=== PATIENT | female | born 1935 | race Caucasian/White ===

== ENCOUNTER 2017-09-05 09:16 | Emergency (ER) | payer MEDICARE, OTHER ==
[2017-09-05 09:33] VITALS: RESP 18
--- NOTE | 2017-09-05 09:44 | ED ---
General Adult HPI - General Chief complaint: Fall Stated complaint: fall Time Seen by Provider: 09/05/17 09:31 Source: patient, EMS, RN notes reviewed Mode of arrival: EMS Limitations: no limitations - History of Present Illness Initial comments: Patient is an 82-year-old female presenting to the emergency room today by EMS, the chief complaint of a fall out of bed that occurred this morning. She states that she is unsure what happened exactly but she fell out of bed landing on her back. Patient states that she is unsure if she hit her head but did not lose consciousness. She states she's not on any blood thinners. She does admit some neck pain. Also missed some mild pain to the lower back. Patient denies any other complaints or symptoms. Patient denies any recent fever, chills , shortness of breath, chest pain, abdominal pain, nausea or vomiting, numbness or tingling, dysuria or hematuria, constipation or diarrhea, headaches or visual changes, or any other complaints. - Related Data Home Medications Medication Instructions Recorded Confirmed Aspirin 81 mg PO DAILY 10/02/13 09/18/15 Atorvastatin Calcium [Lipitor] 20 mg PO HS 10/02/13 09/18/15 Potassium Chloride [Klor-Con 10] 10 meq PO DAILY 10/02/13 09/18/15 Venlafaxine HCl ER [Effexor XR] 150 mg PO DAILY 10/02/13 09/18/15 metFORMIN HCL [Glucophage] 500 mg PO BID 10/02/13 09/18/15 Celecoxib [CeleBREX] 200 mg PO DAILY 01/25/14 09/18/15 Furosemide [Lasix] 20 mg PO HS 07/13/15 09/18/15 Furosemide [Lasix] 40 mg PO [facility] 07/13/15 09/18/15 Albuterol Sulfate [Proair 1 puff PO RT-Q6H PRN 09/18/15 09/18/15 Respiclick] Carvedilol [Coreg] 6.25 mg PO BID 09/18/15 09/18/15 Lovwhsmsourhry-DP-Incelzsrmt 1 tab PO DAILY 09/18/15 09/18/15 [Folbic] Latanoprost [Xalatan 0.005%] 1 drop BOTH EYES HS 09/18/15 09/18/15 Loperamide [Imodium] 2 mg PO QID PRN 09/18/15 09/18/15 SILVER sulfADIAZINE CREAM 1 applic TOPICAL DAILY 09/18/15 09/18/15 [Silvadene Cream] Previous Rx's Medication Instructions Recorded Cefuroxime [Ceftin] 250 mg PO BID #14 tablet 09/21/15 Famotidine [Pepcid] 20 mg PO DAILY tab 09/21/15 Allergies Allergy/AdvReac Type Severity Reaction Status Date / Time Penicillins AdvReac Diarrhea Verified 09/05/17 09:33 Review of Systems ROS Statement: Those systems with pertinent positive or pertinent negative responses have been documented in the HPI. ROS Other: All systems not noted in ROS Statement are negative. Past Medical History Past Medical History: Heart Failure, Diabetes Mellitus, Hyperlipidemia, Osteoarthritis (OA), Seizure Disorder Additional Past Medical History / Comment(s): EDEMA IN LEGS, STATES NOT TAKING ANY CARDIAC MEDS, STATES "HAD CONVULSIONS A CHILD" History of Any Multi-Drug Resistant Organisms: None Reported Past Surgical History: Appendectomy, Cholecystectomy Additional Past Surgical History / Comment(s): JOSSELYN CATARACTS Past Anesthesia/Blood Transfusion Reactions: No Reported Reaction Past Psychological History: Anxiety, Depression Smoking Status: Never smoker Past Alcohol Use History: None Reported Past Drug Use History: None Reported - Past Family History Father Family Medical History: Dementia Mother Family Medical History: No Reported History Additional Family Medical History / Comment(s): IN HER 80'S General Exam - General Exam Comments Initial Comments: General: The patient is awake and alert, in no distress, and does not appear acutely ill. Patient currently in cervical collar. Eye: Pupils are equal, round and reactive to light, extra-ocular movements are intact. No nystagmus. There is normal conjunctiva bilaterally. No signs of icterus. Ears, nose, mouth and throat: There are moist mucous membranes and no oral lesions. Neck: The neck is supple, there is no tenderness or JVD. Cardiovascular: There is a regular rate and rhythm. No murmur, rub or gallop is appreciated. Respiratory: Lungs are clear to auscultation, respirations are non-labored, breath sounds are equal. No wheezes, stridor, rales, or rhonchi. Musculoskeletal: Patient in cervical collar. Patient does have tenderness at C6 -C7. No other bony tenderness on exam. Strength 5/5. Sensation intact. Pulses equal bilaterally 2+. Neurological: A&O x 3. CN II-XII intact, There are no obvious motor or sensory deficits. Coordination appears grossly intact. Speech is normal. Skin: Skin is warm and dry and no rashes or lesions are noted. Psychiatric: Cooperative, appropriate mood & affect, normal judgment. Limitations: no limitations Course Vital Signs 09/05/17 09:31 Temperature 98.2 F Pulse Rate 96 Respiratory 18 Rate Blood Pressure 170/72 O2 Sat by Pulse 97 Oximetry Medical Decision Making - Medical Decision Making Patient's x-rays and CAT scan are negative for any acute abnormalities. Patient' s been ambulatory. Patient denies any complaints currently. Patient will be discharged home. Advised return if any symptoms increase or worsen. Disposition Clinical Impression: Fall, Head injury Disposition: HOME SELF-CARE Condition: Good Instructions: Head Injury (ED) Additional Instructions: Please follow-up with family doctor in the next 2 days of symptoms have not improved. Please return to emergency room if the symptoms increase or worsen or for any other concerns. Is patient prescribed a controlled substance at d/c from ED?: No Referrals: Dariel Reis MD [Primary Care Provider] - 1-2 days Time of Disposition: 11:08
--- NOTE | 2017-09-05 10:08 | CT ---
EXAMINATION TYPE: CT brain anjelica carr con DATE OF EXAM: 09/05/2017 COMPARISON: Previous CT scan of the brain dated 09/18/2015 HISTORY: Fall today with posterior head injury CT DLP: 1623.9 mGycm Automated exposure control for dose reduction was used. TECHNIQUE: CT scan of the head and cervical spine are performed without contrast. FINDINGS: BRAIN: There are generalized changes of sulcal prominence and ventriculomegaly, compatible with mild atrophic change. There is diffuse periventricular white matter lucency, compatible with chronic white matter ischemic change. There is significant vascular calcification. There is no mass effect, midlin e shift or intracranial blood. Visualized portions of the paranasal sinuses and mastoids are clear. The bony calvarium is intact. IMPRESSION: 1. NO ACUTE INTRACRANIAL ABNORMALITY. 2. MILD DEGENERATIVE CHANGE. CERVICAL SPINE: Visualized portions of the lungs are clear. Paraspinal soft tissues are normal. There is a reversal of the normal cervical lordosis. There is a grade 1 listhesis of C4 on C5. Alignm ent is otherwise maintained. Atlantoaxial relationships are normal. There is severe disc space loss a nd hypertrophic spondylosis at C5-6, C6-7 and C7-T1. There is a lesser degree of degenerative change at the C4-5 level. There is uncovertebral joint disease in the lower cervical spine. There is facet arthropathy on the l eft at C2-3 and C3-4. No fracture is identified. IMPRESSION: 1. NO ACUTE OSSEOUS LESION. 2. FAIRLY SIGNIFICANT DEGENERATIVE CHANGE.
--- NOTE | 2017-09-05 10:35 | XR ---
EXAMINATION TYPE: XR lumbar spine 2 or 3V , 3 VIEWS DATE OF EXAM ORDERED: 09/05/2017 HISTORY: Pain. COMPARISON: Previous study dated 06/14/2010. FINDINGS: The gallbladder has been removed. There is a stable dextroscoliosis at the level of the thoracic lumbar junction. There is diffuse disc space loss. Alignment remains normal. There is hypertrophic spondylosis and spondylosis deformans th roughout the lumbar spine. The pedicles are intact. IMPRESSION: 1. NO ACUTE OSSEOUS LESION. 2. EXTENSIVE DEGENERATIVE CHANGE.
[2017-09-05] MEDS ORDERED: ACETAMINOPHEN TAB 325 MG TAB PO STA (11:54)
[2017-09-05 12:48] VITALS: BP 168/75; PULSE 92; TEMP 98.3
== END 2017-09-05 12:40 | disposition home or self-care (01) ==
LOC: EC 09:16
DX: S09.90XA Unspecified injury of head, initial encounter (principal); M54.2 Cervicalgia; M54.5 Low back pain; I50.9 Heart failure, unspecified; E11.9 Type 2 diabetes mellitus without complications; E78.5 Hyperlipidemia, unspecified; M19.90 Unspecified osteoarthritis, unspecified site; F41.9 Anxiety disorder, unspecified; F32.9 Major depressive disorder, single episode, unspecified; Z79.82 Long term (current) use of aspirin; Z79.84 Long term (current) use of oral hypoglycemic drugs; Z79.1 Long term (current) use of non-steroidal anti-inflammatories (NSAID); Z79.02 Long term (current) use of antithrombotics/antiplatelets; Z88.0 Allergy status to penicillin; W06.XXXA Fall from bed, initial encounter
CPT/HCPCS: 70450; 72100; 72125; 99284

== ENCOUNTER 2017-10-20 12:28 | Inpatient (IN) | payer MEDICARE, OTHER ==
[2017-10-20] MEDS ORDERED: SODIUM CHLORIDE 0.9% 2,000 ML IV ONE (12:55)
[2017-10-20] MEDS ORDERED: ACETAMINOPHEN TAB 500 MG TAB PO STA (12:55)
--- NOTE | 2017-10-20 13:15 | ED ---
Fall HPI - General Chief Complaint: Fall Stated Complaint: Confusion, Weakness Time Seen by Provider: 10/20/17 12:49 Source: patient, EMS Mode of arrival: EMS - History of Present Illness Initial Comments: Patient is an 82-year-old female presents with a chief complaint of a fall. The patient lives and a [facility] facility. The patient states that the fall happened yesterday. Patient states she was able to get up after the fall. The patient states that she did not lose consciousness, did not hit her head, does not take blood thinners. The patient states that she had no symptoms prior to her fall but does not know what caused her to fall. In the emergency department, the patient had a fever. It was reported from her home that there is a strong smell of urine. Patient cannot identify any causes of fever. Patient denies any pain or complaints at this time. - Related Data Home Medications Medication Instructions Recorded Confirmed Albuterol Nebulized [Ventolin 2.5 mg INHALATION RT-TID 10/20/17 10/20/17 Nebulized] Albuterol Sulfate [Proair 2 puff INHALATION RT-Q6H PRN 10/20/17 10/20/17 Respiclick] Carvedilol [Coreg] 6.25 mg PO BID 10/20/17 10/20/17 Cholecalciferol [Vitamin D3] 1,000 unit PO DAILY 10/20/17 10/20/17 Ltcyooargyydtb-KT-Lzimhenfur 1 tab PO DAILY 10/20/17 10/20/17 [Folbic] Furosemide [Lasix] 20 mg PO HS 10/20/17 10/20/17 Furosemide [Lasix] 40 mg PO QAM 10/20/17 10/20/17 Montelukast [Singulair] 10 mg PO HS 10/20/17 10/20/17 Potassium Chloride ER [K-Dur 10] 10 meq PO DAILY 10/20/17 10/20/17 metFORMIN HCL [Glucophage Xr] 500 mg PO BID 10/20/17 10/20/17 Allergies Allergy/AdvReac Type Severity Reaction Status Date / Time erythromycin base AdvReac Diarrhea Verified 10/20/17 13:20 Review of Systems ROS Statement: Those systems with pertinent positive or pertinent negative responses have been documented in the HPI. ROS Other: All systems not noted in ROS Statement are negative. Constitutional: Reports: fever Neurological: Reports: weakness, confusion Past Medical History Past Medical History: Unable to Obtain History of Any Multi-Drug Resistant Organisms: Unobtainable Past Surgical History: Appendectomy Past Psychological History: Unable to Obtain Smoking Status: Never smoker Past Alcohol Use History: None Reported Past Drug Use History: None Reported General Exam Limitations: no limitations General appearance: alert, in no apparent distress Head exam: Present: atraumatic, normocephalic Eye exam: Present: normal appearance, PERRL, other (Patient has crusting bilateral eyelashes. The eye is otherwise unremarkable.) ENT exam: Present: normal exam, mucous membranes moist Neck exam: Present: normal inspection, full ROM. Absent: lymphadenopathy Respiratory exam: Present: normal lung sounds bilaterally. Absent: respiratory distress, wheezes Cardiovascular Exam: Present: normal rhythm, tachycardia GI/Abdominal exam: Present: soft, tenderness (Patient has tenderness in the epigastric region in the left lower quadrant.). Absent: distended Rectal exam: Present: deferred Extremities exam: Present: normal inspection Back exam: Present: normal inspection Neurological exam: Present: alert, altered, other (Patient AO2) Psychiatric exam: Present: normal affect, normal mood Skin exam: Present: warm, dry, intact Course Vital Signs 10/20/17 10/20/17 10/20/17 12:29 14:36 16:13 Temperature 101.3 F H 98.9 F 97.2 F L Pulse Rate 115 H 103 H 87 Respiratory 18 18 16 Rate Blood Pressure 175/74 152/96 139/61 O2 Sat by Pulse 96 98 99 Oximetry Medical Decision Making - Medical Decision Making Patient presents with a chief complaint of a fall. On initial evaluation, the patient is febrile and tachycardic. The patient otherwise appears well and has no complaints at this time. There are no physical signs of trauma on the head or neck. Medical history is unable to be obtained. Patient states that she has no other medical history. EKG shows a regular rhythm with a rate of about 90 BPM. EKG interpretation severely limited secondary to motion artifact. repeat EKGs show the same. patient again denies chest pain, she is not in apparent distress. no signs of ST segment elevation. 3:11pm Evaluation of this patient is significant for mildly elevated troponin at 0.043 , elevated BNP at 1890, and evidence of urinary tract infection. On reevaluation, patient is awake, alert, and appears comfortable. Patient initially was ordered sepsis fluid bolus, boluses were stopped after about 900 mL of fluid. We'll discontinue further IV fluids given patient's chest x-ray showing congestive changes, and elevated BNP. Patient currently not in any respiratory distress, clinically does not appear to be fluid overloaded. Computed tomography scan of the abdomen and pelvis shows evidence of a right distal obstructing renal stone, with hydroureter, hydronephrosis. Patient was started on Rocephin, and given a dose of aspirin. This case was discussed with Dr. Cole who since admission with consult cardiology, and urology. I discussed admission with the patient and her [id number]. Everyone is in agreement with the current care plan. will continue to monitor the patient while in the ED. repeat vital signs show improved VS, HR now 103, patient afebrile. - Lab Data Result diagrams: 10/20/17 12:52 10/20/17 12:52 Lab Results 10/20/17 10/20/17 10/20/17 Range/Units 12:52 12:52 12:52 WBC 12.3 H (3.8-10.6) k/uL RBC 4.35 (3.80-5.40) m/uL Hgb 13.5 (11.4-16.0) gm/dL Hct 41.2 (34.0-46.0) % MCV 94.7 (80.0-100.0) fL MCH 31.1 (25.0-35.0) pg MCHC 32.8 (31.0-37.0) g/dL RDW 14.0 (11.5-15.5) % Plt Count 195 (150-450) k/uL Neutrophils % 84 % Lymphocytes % 8 % Monocytes % 6 % Eosinophils % 0 % Basophils % 0 % Neutrophils # 10.3 H (1.3-7.7) k/uL Lymphocytes # 1.0 (1.0-4.8) k/uL Monocytes # 0.7 (0-1.0) k/uL Eosinophils # 0.0 (0-0.7) k/uL Basophils # 0.1 (0-0.2) k/uL Sodium 145 (137-145) mmol/L Potassium 3.9 (3.5-5.1) mmol/L Chloride 109 H (98-107) mmol/L Carbon Dioxide 24 (22-30) mmol/L Anion Gap 12 mmol/L BUN 28 H (7-17) mg/dL Creatinine 0.69 (0.52-1.04) mg/dL Est GFR (CKD-EPI)AfAm >90 (>60 ml/min/1.73 sqM) Est GFR (CKD-EPI)NonAf 82 (>60 ml/min/1.73 sqM) Glucose 177 H (74-99) mg/dL Plasma Lactic Acid Flex (0.7-2.0) mmol/L Calcium 9.0 (8.4-10.2) mg/dL Total Bilirubin 1.2 (0.2-1.3) mg/dL AST 40 H (14-36) U/L ALT 36 (9-52) U/L Alkaline Phosphatase 58 (38-126) U/L Troponin I 0.047 H* (0.000-0.034) ng/mL NT-Pro-B Natriuret Pep pg/mL Total Protein 6.0 L (6.3-8.2) g/dL Albumin 3.1 L (3.5-5.0) g/dL Lipase 36 (23-300) U/L Urine Color Urine Appearance (Clear) Urine pH (5.0-8.0) Ur Specific [place] (1.001-1.035) Urine Protein (Negative) Urine Glucose (UA) (Negative) Urine Ketones (Negative) Urine Blood (Negative) Urine Nitrite (Negative) Urine Bilirubin (Negative) Urine Urobilinogen (<2.0) mg/dL Ur Leukocyte Esterase (Negative) Urine RBC (0-5) /hpf Urine WBC (0-5) /hpf Urine WBC Clumps (None) /hpf Urine Bacteria (None) /hpf Hyaline Casts (0-2) /lpf Urine Mucus (None) /hpf 10/20/17 10/20/17 10/20/17 Range/Units 12:52 12:52 13:34 WBC (3.8-10.6) k/uL RBC (3.80-5.40) m/uL Hgb (11.4-16.0) gm/dL Hct (34.0-46.0) % MCV (80.0-100.0) fL MCH (25.0-35.0) pg MCHC (31.0-37.0) g/dL RDW (11.5-15.5) % Plt Count (150-450) k/uL Neutrophils % % Lymphocytes % % Monocytes % % Eosinophils % % Basophils % % Neutrophils # (1.3-7.7) k/uL Lymphocytes # (1.0-4.8) k/uL Monocytes # (0-1.0) k/uL Eosinophils # (0-0.7) k/uL Basophils # (0-0.2) k/uL Sodium (137-145) mmol/L Potassium (3.5-5.1) mmol/L Chloride (98-107) mmol/L Carbon Dioxide (22-30) mmol/L Anion Gap mmol/L BUN (7-17) mg/dL Creatinine (0.52-1.04) mg/dL Est GFR (CKD-EPI)AfAm (>60 ml/min/1.73 sqM) Est GFR (CKD-EPI)NonAf (>60 ml/min/1.73 sqM) Glucose (74-99) mg/dL Plasma Lactic Acid Flex 1.9 (0.7-2.0) mmol/L Calcium (8.4-10.2) mg/dL Total Bilirubin (0.2-1.3) mg/dL AST (14-36) U/L ALT (9-52) U/L Alkaline Phosphatase (38-126) U/L Troponin I (0.000-0.034) ng/mL NT-Pro-B Natriuret Pep 1890 pg/mL Total Protein (6.3-8.2) g/dL Albumin (3.5-5.0) g/dL Lipase (23-300) U/L Urine Color Yellow Urine Appearance Turbid H (Clear) Urine pH 6.5 (5.0-8.0) Ur Specific [place] 1.019 (1.001-1.035) Urine Protein 2+ H (Negative) Urine Glucose (UA) Negative (Negative) Urine Ketones 1+ H (Negative) Urine Blood Large H (Negative) Urine Nitrite Positive H (Negative) Urine Bilirubin Negative (Negative) Urine Urobilinogen <2.0 (<2.0) mg/dL Ur Leukocyte Esterase Large H (Negative) Urine RBC 47 H (0-5) /hpf Urine WBC >182 H (0-5) /hpf Urine WBC Clumps Many H (None) /hpf Urine Bacteria Many H (None) /hpf Hyaline Casts 33 H (0-2) /lpf Urine Mucus Many H (None) /hpf Disposition Clinical Impression: Fall, CHF exacerbation, Troponin level elevated, Ureterolithiasis, Urinary tract infection, SIRS (systemic inflammatory response syndrome) Disposition: ADMITTED IP TO THIS [facility] Condition: Fair Decision to Admit Reason: Admit from [facility] - Out of Hospital Transfer - Req. Specs Out of Hospital Transfer - Requested Specifics: Telemetry Unit
[2017-10-20 13:27] LABS: Basophils # (A) 0.1 k/uL (0-0.2); Basophils % (A) 0 %; Eosinophils % (A) 0 %; HCT 41.2 % (34.0-46.0); HGB 13.5 gm/dL (11.4-16.0); Lymphocytes % (A) 8 %; MCH 31.1 pg (25.0-35.0); MCHC 32.8 g/dL (31.0-37.0); MCV 94.7 fL (80.0-100.0); Mean Platelet Volume 8.7; Monocytes # (A) 0.7 k/uL (0-1.0); Monocytes % (A) 6 %; Neutrophils # (A) 10.3 k/uL (1.3-7.7); Neutrophils % (A) 84 %; Platelet Count 195 k/uL (150-450); RBC 4.35 m/uL (3.80-5.40); WBC 12.3 k/uL (3.8-10.6)
[2017-10-20 13:45] LABS: ALT 36 U/L (9-52); AST 40 U/L (14-36); Albumin 3.1 g/dL (3.5-5.0); Alkaline Phosphatase 58 U/L (38-126); Anion Gap 12 mmol/L; Blood Urea Nitrogen 28 mg/dL (7-17); Carbon Dioxide 24 mmol/L (22-30); Chloride 109 mmol/L (98-107); Glucose 177 mg/dL (74-99); Lipase 36 U/L (23-300); Potassium 3.9 mmol/L (3.5-5.1); Sodium 145 mmol/L (137-145); Total Bilirubin 1.2 mg/dL (0.2-1.3)
[2017-10-20 13:48] LABS: Appearance,Urine Turbid (Clear); Bacteria,Urine Many /hpf; Bilirubin,Urine Negative (Negative); Blood,Urine Large (Negative); Color,Urine Yellow; Glucose,Urine (UA) Negative (Negative); Hyaline Casts,Urine 33 /lpf (0-2); Ketones,Urine 1+ (Negative); Leukocyte Esterase,Urine Large (Negative); Mucus,Urine Many /hpf; Nitrite,Urine Positive (Negative); PH, Urine 6.5 (5.0-8.0); Protein,Urine 2+ (Negative); RBC,Urine 47 /hpf (0-5); Specific Gravity,Urine 1.019 (1.001-1.035); Urobilinogen,Urine <2.0 mg/dL (<2.0); WBC,Urine >182 /hpf (0-5)
--- NOTE | 2017-10-20 14:32 | XR ---
EXAMINATION TYPE: XR chest 2V DATE OF EXAM: 10/20/2017 COMPARISON: NONE HISTORY: Shortness of breath TECHNIQUE: Frontal and lateral views of the chest are obtained. FINDINGS: There is mild interstitial pulmonary edema and moderate cephalization with partial visuali zation of the cardiac silhouette that appears enlarged. No discrete pleural effusion or pneumothorax is seen. Osseous demineralization and advanced degenerative change of the left shoulder are noted. Th ere is mild dextroscoliotic curvature of the thoracic spine mild multilevel degenerative changes of t he thoracic spine in combination with diffuse osseous demineralization. IMPRESSION: Findings suggestive of cardiogenic fluid overload/decompensated congestive heart failure with interstitial pulmonary edema and pulmonary vascular congestion in addition to cardiomegaly.
--- NOTE | 2017-10-20 14:40 | CT ---
EXAMINATION TYPE: CT brain cspine wo con DATE OF EXAM: 10/20/2017 COMPARISON: CT brain and cervical spine September 05, 2017 HISTORY: Fall injury with headache and neck pain. CT DLP: 2440.8 mGycm. Automated Exposure Control for Dose Reduction was Utilized. TECHNIQUE: CT scan of the head and cervical spine are performed without contrast. FINDINGS: There is no acute intracranial hemorrhage or midline shift identified. There is mild shy tricular and sulcal prominence redemonstrated. Low-attenuation in the deep and periventricular white matter is redemonstrated. Calcified lens bilaterally are redemonstrated in both globes. Repeat images of skull base are performed due to patient motion. Eccentric mucosal thickening or tiny air-fluid le shawn in dominant left sphenoid sinus is present axial image 9. Cervical spine is visualized in its entirety from C1 through upper thoracic levels and demonstrates s table reversed normal cervical curvature without evidence of acute fracture or dislocation. There is slight grade 1 anterolisthesis of C4 on C5. Prevertebral soft tissue appears within normal limits. The C1-C2 articulation is unremarkable on the coronal images. Osseous structures remain demineralized. Vertebral body heights are maintained. Moderate to severe sp urring and disc space narrowing C5-C6 and C6-C7 levels redemonstrated. Posterior spur disc complexes are effacing anterior thecal sac at these levels. Review of axial images shows multilevel left-sided uncovertebral facet degenerative changes contributing to multilevel neural foraminal narrowing. Lung apices are clear. Thyroid gland is felt within normal limits. No significant change from prior. IMPRESSION: 1. There is no acute fracture or dislocation evident in the cervical spine. 2. No acute intracranial hemorrhage or midline shift is seen. No significant change from prior study.
--- NOTE | 2017-10-20 14:45 | CT ---
EXAMINATION TYPE: CT abdomen pelvis w con DATE OF EXAM: 10/20/2017 HISTORY: Fall with subsequent abdominal and pelvic pain CT DLP: 1478.1mGycm Automated Exposure Control for Dose Reduction was Utilized. CONTRAST: CT scan of the abdomen and pelvis is performed with IV Contrast, patient injected with 100 mL of Isov ue 300. COMPARISON: None. FINDINGS: Patient motion artifact through the lower to mid abdomen somewhat limits evaluation. LUNG BASES: There is prominent subpleural fat deposition. Bibasilar pleural parenchymal scarring and atelectasis are noted. Within the posterior mediastinum there is a small hiatal hernia and distal eso phageal diverticulum. Partial visualization of coronary artery calcifications. LIVER/GB: Patchy heterogenous enhancement of the hepatic parenchyma with right hepatic lobe atrophy a re suggestive of underlying hepatocellular disease/cirrhosis. Gallbladder surgically absent. PANCREAS: Few pancreatic parenchymal calcifications suggest chronic pancreatitis. Additionally there is a peripancreatic peripherally calcified low-density lesion that does not measure fluid attenuation . This measures 5.9 x 3.7 cm on series 3 image 32. Pancreatic ductal prominence may also be on the ba sis of chronic pancreatitis although further evaluation with MRCP with and without contrast is recomm ended for these findings. SPLEEN: No significant abnormality is seen. ADRENALS: No significant abnormality is seen. KIDNEYS: There is moderate left hydronephrosis and marked left hydroureter with perinephric fat stran ding, decreased enhancement of the left kidney and asymmetric size of the left kidney in addition to dilated tortuosity of the left ureter and left pelvic sidewall inflammatory change all secondary to a distal obstructing large left ureterovesicular junction calculus measuring 1.4 cm in anterior patient care director ior measurement dimension but 3.1 cm in craniocaudal dimension. The urinary bladder is decompressed a nd incompletely evaluated. BOWEL: No significant abnormality is seen. UTERUS/ADNEXA: Endometrium appears slightly thickened for a postmenopausal female measuring 7 mm and further evaluation with pelvic ultrasound is recommended on a nonemergent basis. LYMPH NODES: No greater than 1cm abdominal or pelvic lymph nodes are appreciated. OSSEOUS STRUCTURES: Multilevel moderate degenerative change of the spine is seen with straightening o f usual lumbar lordosis. There is also a slight curvature of the lumbar spine that is S-shaped. No ve rtebral body height loss is seen. OTHER: Extensive atherosclerosis is noted of the abdominal aorta and its branches. There is a small f at filled umbilical hernia superimposed upon diastases recti. IMPRESSION: 1. No evidence of visceral injury, pneumoperitoneum or gross evidence of acute displaced fracture alt cortney there is slight limitation given patient motion. 2. Peripancreatic peripherally calcified 5.9 cm lesion for which further characterization with MRCP w ith and without contrast is recommended to evaluate for the additional finding of pancreatic ductal p rominence and enhancement of the mass. This could represent a pancreatic cystic neoplasm or pseudocys t with pseudocyst favored given other sequela of chronic pancreatitis. 3. Distal obstructing 1.4 cm calculus near the left ureterovesicular junction creating marked hydrour eter, moderate hydronephrosis, perinephric fat stranding and left pelvic inflammatory change as well as asymmetric function of the left kidney. 4. Findings suggesting underlying hepatocellular disease/cirrhosis without sequela portal venous hype rtension.
[2017-10-20] MEDS ORDERED: ASPIRIN 81 MG PO STA (14:55)
[2017-10-20] MEDS ORDERED: cefTRIAXone IN SWFI 1,000 MG/10 ML SYRINGE IVP STA (15:05)
[2017-10-20] MEDS ORDERED: HYDROcodone/APAP 5-325MG 1 EACH TAB PO PRN (15:06)
[2017-10-20] MEDS ORDERED: NALOXONE 0.4 MG/ML 1 ML VIAL IV PRN (15:06)
[2017-10-20] MEDS ORDERED: ONDANSETRON 4 MG/2 ML VIAL IVP PRN (15:06)
[2017-10-20] MEDS ORDERED: ACETAMINOPHEN TAB 325 MG TAB PO PRN (15:06)
[2017-10-20 16:39] LABS: Glucose,Whole Blood 118 mg/dL (75-99)
--- NOTE | 2017-10-20 18:28 | P.GSCN ---
History of Present Illness Consult date: 10/20/17 History of present illness: I was asked to see this pleasant 82-year-old female for a ureteral calculus, urinary tract infection with sepsis. This patient actually presented emergency room with a fall for unknown reasons. She states that she did not lose consciousness. She states that she did not trip. She was evaluated in the emergency room and a computed tomography scan identified a left hydroureteronephrosis do to a 14 mm distal ureteral stone. She had a temperature of 101 in the emergency room. Her white count is 11,000. Her urine is infected. She has no history of stones. She is asymptomatic with regard to fever and pain at present. She states that she feels well. She is not tachycardic. There is no history of hematuria. There is no history current urine infections. Review of Systems - Genitourinary Genitourinary: Reports as per HPI - Musculoskeletal Reports as per HPI - Neurological Reports as per HPI Past Medical History Past Medical History: Hypertension Additional Past Medical History / Comment(s): past cataract(sx), glaucoma lara eyes, past migraines History of Any Multi-Drug Resistant Organisms: None Reported Past Surgical History: Appendectomy, Cholecystectomy Additional Past Surgical History / Comment(s): cataracts Past Anesthesia/Blood Transfusion Reactions: No Reported Reaction Smoking Status: Never smoker - Past Family History Father Additional Family Medical History / Comment(s): from old age Mother Additional Family Medical History / Comment(s): from old ae Medications and Allergies Home Medications Medication Instructions Recorded Confirmed Type Albuterol Nebulized [Ventolin 2.5 mg INHALATION RT-TID 10/20/17 10/20/17 History Nebulized] Albuterol Sulfate [Proair 2 puff INHALATION RT-Q6H PRN 10/20/17 10/20/17 History Respiclick] Carvedilol [Coreg] 6.25 mg PO BID 10/20/17 10/20/17 History Cholecalciferol [Vitamin D3] 1,000 unit PO DAILY 10/20/17 10/20/17 History Ygxiwaqyjksmae-BG-Owaaqddkpa 1 tab PO DAILY 10/20/17 10/20/17 History [Folbic] Furosemide [Lasix] 20 mg PO HS 10/20/17 10/20/17 History Furosemide [Lasix] 40 mg PO QAM 10/20/17 10/20/17 History Montelukast [Singulair] 10 mg PO HS 10/20/17 10/20/17 History Potassium Chloride ER [K-Dur 10] 10 meq PO DAILY 10/20/17 10/20/17 History metFORMIN HCL [Glucophage Xr] 500 mg PO BID 10/20/17 10/20/17 History Allergies Allergy/AdvReac Type Severity Reaction Status Date / Time erythromycin base AdvReac Diarrhea Verified 10/20/17 13:20 Surgical - Exam Vital Signs Temp Pulse Resp BP Pulse Ox 101.3 F H 115 H 18 175/74 96 10/20/17 12:29 10/20/17 12:29 10/20/17 12:29 10/20/17 12:29 10/20/17 12:29 - General well developed, well nourished, no distress - Eyes PERRL - ENT no hearing loss - Neck trachea midline - Respiratory normal expansion, normal respiratory effort - Cardiovascular Rhythm: regular - Abdomen Abdomen: soft, non tender - Integumentary no rash - Neurologic normal coordination, normal sensation - Musculoskeletal normal posture - Psychiatric oriented to time, oriented to person, oriented to place, speech is normal, memory intact Results - Labs 10/20/17 12:52 10/20/17 12:52 Abnormal Lab Results - Last 24 Hours (Table) 10/20/17 10/20/17 10/20/17 Range/Units 12:52 12:52 12:52 WBC 12.3 H (3.8-10.6) k/uL Neutrophils # 10.3 H (1.3-7.7) k/uL Chloride 109 H (98-107) mmol/L BUN 28 H (7-17) mg/dL Glucose 177 H (74-99) mg/dL POC Glucose (mg/dL) (75-99) mg/dL AST 40 H (14-36) U/L Troponin I 0.047 H* (0.000-0.034) ng/mL Total Protein 6.0 L (6.3-8.2) g/dL Albumin 3.1 L (3.5-5.0) g/dL Urine Appearance (Clear) Urine Protein (Negative) Urine Ketones (Negative) Urine Blood (Negative) Urine Nitrite (Negative) Ur Leukocyte Esterase (Negative) Urine RBC (0-5) /hpf Urine WBC (0-5) /hpf Urine WBC Clumps (None) /hpf Urine Bacteria (None) /hpf Hyaline Casts (0-2) /lpf Urine Mucus (None) /hpf 10/20/17 10/20/17 Range/Units 13:34 16:38 WBC (3.8-10.6) k/uL Neutrophils # (1.3-7.7) k/uL Chloride (98-107) mmol/L BUN (7-17) mg/dL Glucose (74-99) mg/dL POC Glucose (mg/dL) 118 H (75-99) mg/dL AST (14-36) U/L Troponin I (0.000-0.034) ng/mL Total Protein (6.3-8.2) g/dL Albumin (3.5-5.0) g/dL Urine Appearance Turbid H (Clear) Urine Protein 2+ H (Negative) Urine Ketones 1+ H (Negative) Urine Blood Large H (Negative) Urine Nitrite Positive H (Negative) Ur Leukocyte Esterase Large H (Negative) Urine RBC 47 H (0-5) /hpf Urine WBC >182 H (0-5) /hpf Urine WBC Clumps Many H (None) /hpf Urine Bacteria Many H (None) /hpf Hyaline Casts 33 H (0-2) /lpf Urine Mucus Many H (None) /hpf Diabetes panel 10/20/17 Range/Units 12:52 Sodium 145 (137-145) mmol/L Potassium 3.9 (3.5-5.1) mmol/L Chloride 109 H (98-107) mmol/L Carbon Dioxide 24 (22-30) mmol/L BUN 28 H (7-17) mg/dL Creatinine 0.69 (0.52-1.04) mg/dL Glucose 177 H (74-99) mg/dL Calcium 9.0 (8.4-10.2) mg/dL AST 40 H (14-36) U/L ALT 36 (9-52) U/L Alkaline Phosphatase 58 (38-126) U/L Total Protein 6.0 L (6.3-8.2) g/dL Albumin 3.1 L (3.5-5.0) g/dL Calcium panel 10/20/17 Range/Units 12:52 Calcium 9.0 (8.4-10.2) mg/dL Albumin 3.1 L (3.5-5.0) g/dL Pituitary panel 10/20/17 Range/Units 12:52 Sodium 145 (137-145) mmol/L Potassium 3.9 (3.5-5.1) mmol/L Chloride 109 H (98-107) mmol/L Carbon Dioxide 24 (22-30) mmol/L BUN 28 H (7-17) mg/dL Creatinine 0.69 (0.52-1.04) mg/dL Glucose 177 H (74-99) mg/dL Calcium 9.0 (8.4-10.2) mg/dL Adrenal panel 10/20/17 Range/Units 12:52 Sodium 145 (137-145) mmol/L Potassium 3.9 (3.5-5.1) mmol/L Chloride 109 H (98-107) mmol/L Carbon Dioxide 24 (22-30) mmol/L BUN 28 H (7-17) mg/dL Creatinine 0.69 (0.52-1.04) mg/dL Glucose 177 H (74-99) mg/dL Calcium 9.0 (8.4-10.2) mg/dL Total Bilirubin 1.2 (0.2-1.3) mg/dL AST 40 H (14-36) U/L ALT 36 (9-52) U/L Alkaline Phosphatase 58 (38-126) U/L Total Protein 6.0 L (6.3-8.2) g/dL Albumin 3.1 L (3.5-5.0) g/dL - Imaging CT scan - abdomen: report reviewed, image reviewed CT scan - pelvis: report reviewed, image reviewed US - abdomen: report reviewed Assessment and Plan Assessment: Impression: This patient presents with a fall of unknown cause. She has a 14 mm distal ureteral stone on the left hydroureteronephrosis. She has an apparent urinary tract infection with sepsis. She has eaten this evening. She currently is stable at present. Given the appearance of the urine and the fever and the degree of hydronephrosis she would be best served with a stent followed by subsequent ureteroscopy and laser lithotripsy. She'll be set up for cystoscopy and stent tomorrow. Secondarily a lithotripsy will be done.
[2017-10-20 21:27] LABS: Glucose,Whole Blood 110 mg/dL (75-99)
[2017-10-20] MEDS ORDERED: ALBUTEROL SULFATE INHALATION PRN (21:37)
[2017-10-20] MEDS: MONTELUKAST 10 MG TAB PO SCH (23:13)
[2017-10-20] MEDS: FUROSEMIDE 20 MG TAB PO SCH (23:13)
[2017-10-20] MEDS: CARVEDILOL 6.25 MG TAB PO SCH (23:14)
[2017-10-21 06:19] LABS: Glucose,Whole Blood 123 mg/dL (75-99)
[2017-10-21 06:32] LABS: Basophils # (A) 0.1 k/uL (0-0.2); Basophils % (A) 0 %; Eosinophils # (A) 0.2 k/uL (0-0.7); Eosinophils % (A) 1 %; HCT 39.8 % (34.0-46.0); HGB 12.6 gm/dL (11.4-16.0); Lymphocytes # (A) 1.7 k/uL (1.0-4.8); Lymphocytes % (A) 13 %; MCH 29.9 pg (25.0-35.0); MCHC 31.6 g/dL (31.0-37.0); MCV 94.6 fL (80.0-100.0); Mean Platelet Volume 9.2; Monocytes % (A) 8 %; Neutrophils % (A) 76 %; Platelet Count 186 k/uL (150-450); RDW 13.9 % (11.5-15.5); WBC 13.1 k/uL (3.8-10.6)
[2017-10-21] MEDS: CARVEDILOL 6.25 MG TAB PO SCH ×2 (06:43→17:51)
[2017-10-21 07:14] LABS: ALT 35 U/L (9-52); AST 36 U/L (14-36); Albumin 2.8 g/dL (3.5-5.0); Alkaline Phosphatase 55 U/L (38-126); Anion Gap 8 mmol/L; Blood Urea Nitrogen 25 mg/dL (7-17); Calcium 8.6 mg/dL (8.4-10.2); Carbon Dioxide 27 mmol/L (22-30); Chloride 106 mmol/L (98-107); Glucose 129 mg/dL (74-99); Magnesium 1.7 mg/dL (1.6-2.3); Potassium 3.3 mmol/L (3.5-5.1); Sodium 141 mmol/L (137-145); Total Bilirubin 0.7 mg/dL (0.2-1.3); Total Protein 5.5 g/dL (6.3-8.2)
[2017-10-21] MEDS ORDERED: CARVEDILOL 6.25 MG TAB PO SCH (07:30)
[2017-10-21] MEDS: CYANOCOBALAMIN-FA-PYRIDOXINE 1 EACH TAB PO SCH (08:04)
[2017-10-21] MEDS: CHOLECALCIFEROL 1,000 UNIT TAB PO SCH (08:04)
[2017-10-21] MEDS: FUROSEMIDE 40 MG TAB PO SCH (08:04)
[2017-10-21] MEDS: POTASSIUM CHLORIDE ER 10 MEQ TAB.ER.PRT PO SCH (08:05)
[2017-10-21] MEDS ORDERED: LACTATED RINGERS 1,000 ML IV ONE (09:48)
[2017-10-21] MEDS: ALBUTEROL NEBULIZED 2.5 MG/3 ML INHALATION SCH ×3 (09:53→19:58)
--- NOTE | 2017-10-21 10:15 | CONS ---
CONSULTATION Yvrose Horton is an 82-year-old female who presented with UTI and sepsis. Cardiology was consulted on account of an abnormal troponin. She is awaiting urologic procedure. She denies any chest discomfort, no shortness of breath. She looks comfortable. MEDICATIONS: Medications include albuterol, carvedilol, Lasix, potassium and metformin. ALLERGIES: Intolerance to ERYTHROMYCIN; she gets diarrhea. REVIEW OF SYSTEMS: Review of systems is not obtainable. PAST HISTORY: Past history of appendectomy. PHYSICAL EXAMINATION: On examination, she is febrile 99.9 degrees Fahrenheit, pulse rate is in the 80s and 90s, blood pressure 126/68 mmHg. Heart sounds S1, S2 are normal. No murmurs, no gallops, no rub. Breath sounds are reduced bilaterally. Abdomen is soft. Extremities warm. Her 12-lead ECG shows baseline artifact, but P waves are noted with PACs. LABS: Her labs are reviewed. First troponin was abnormal, but the other troponins are completely normal. IMPRESSION: 1. Single abnormal troponin, but the follow-up troponins are normal, possibly a lab error. 2. A 12-lead ECG shows sinus rhythm with PACs. 3. Patient awaiting urologic surgery for urosepsis. SUGGEST: A 2-D echo and Doppler study and if it is normal she may proceed with urologic surgery. From a cardiac standpoint, no further workup indicated. MMODL / IJN: [id number] /
[2017-10-21] MEDS ORDERED: PROPOFOL 10 MG/ML 20 ML VIAL IV ONE (10:18)
[2017-10-21] MEDS ORDERED: MIDAZOLAM 2 MG/2 ML VIAL ONE (10:18)
[2017-10-21] MEDS ORDERED: KETAMINE 10 MG/ML 20 ML VIAL ONE (10:18)
[2017-10-21] MEDS ORDERED: fentaNYL (PF) 50 MCG/ML 2 ML AMP ONE (10:18)
[2017-10-21] MEDS ORDERED: LIDOCAINE 1% INJ 10MG/ML (20 ML MDV) ONE (10:18)
[2017-10-21] MEDS ORDERED: IOHEXOL 300 MG/ML 50 ML BOTTLE MISCELLANE ONE (10:49)
--- NOTE | 2017-10-21 10:58 | P.OP ---
Date of Procedure: 10/21/17 Preoperative Diagnosis: Left ureteral stone, left hydronephrosis, urinary tract infection with sepsis Postoperative Diagnosis: Same Procedure(s) Performed: Cystoscopy, placement of 6 x 24 double-J catheter left Anesthesia: MAC Surgeon: Wilbert Goldstein Estimated Blood Loss (ml): 0 Pathology: none sent Condition: stable Disposition: PACU Indications for Procedure: The patient is an 82-year-old female in the hospital with a urinary tract infection with sepsis left hydronephrosis and obstructing ureteral stone, 14 mm in the distal ureter she comes for stent placement Description of Procedure: Patient is brought to the operating suite. She is given IV sedation. She's placed lithotomy position with sterile prep and drape. The urethra is normal. The vaginal mucosa was inflamed. The trigone is chronically inflamed as is the floor the bladder. An 035 wires passed in the ureter. It goes by the stone. There is a complete loop of the proximal ureter. The wires passed into the kidney. Over the wires passed a 6-Mohawk open-ended catheter straighten out the coil of the ureter up. I then removed the open-ended catheter and over this is passed a 6 x 24 double-J catheter that coils in the renal pelvis and the bladder bladder strain the patient's awake and returned recovery room good condition. She tolerated the procedure well. In about 2 weeks she'll undergo a formal ureteroscopy and stone extraction.
[2017-10-21] MEDS ORDERED: POTASSIUM CHLORIDE ER 20 MEQ TAB.ER PO STA ×2 (11:20)
[2017-10-21 11:39] LABS: Glucose,Whole Blood 110 mg/dL (75-99)
[2017-10-21] MEDS: INSULIN ASPART 100 UNIT/ML 1 ML 10 ML VIAL SQ SCH ×3 (12:25→21:09)
[2017-10-21 14:08] LABS: Hemoglobin A1C 6.1 % (4.0-6.0)
--- NOTE | 2017-10-21 16:36 | P.HPIM ---
History of Present Illness H&P Date: 10/21/17 Chief Complaint: sepsis/UTI, large 14 mm distal ureteral stone, left hydronephrosis, post fa 82-year-old female one of Dr. Reis's patient who live in [facility] with past medical history of diabetes hypertension migraine mild congestive heart failure and history of mild COPD who apparently had fall at [facility] without syncopal episode according to her she tripped was not able to get out of the floor she called for help found to have fever with severe tiredness fatigue ended up coming to the emergency department at [facility] where found to have elevated temperature around 101 with elevated white blood cell urine was positive and patient testing showed left sided large ureteral stone with ureteral nephrosis. Patient was started on IV antibiotics with Rocephin 1 g daily we'll consult urology and admitted to the hospital shortly after with above problem. Review of Systems Constitutional: Reports fatigue, Reports lethargy, Reports weakness Eyes: denies blurred vision, denies bulging eye, denies decreased vision Ears: deny: decreased hearing, ear discharge, earache Ears, nose, mouth and throat: Denies headache, Denies sore throat Cardiovascular: Reports decreased exercise tolerance, Reports dyspnea on exertion, Reports shortness of breath, worsening edema. Respiratory: Reports cough, Reports dyspnea, worsening shortness of breath along with cough productive phlegm. Gastrointestinal: Positive abdominal pain, positive diarrhea, positive nausea, positive vomiting Genitourinary: Reports as per HPI Musculoskeletal: Denies myalgias Musculoskeletal: absent: ankle pain, ankle stiffness, ankle swelling Integumentary: Denies pruritus, Denies rash, worsening edema of the lower extremity. Neurological: Reports change in mentation, Reports weakness, mild change mental status compared to his baseline. Psychiatric: Denies anxiety, Denies depression Endocrine: Denies fatigue, Denies weight change Hematologic/Lymphatic: Reports as per HPI Allergic/Immunologic: Reports as per HPI Past Medical History Past Medical History: Hypertension Additional Past Medical History / Comment(s): past cataract(sx), glaucoma lara eyes, past migraines History of Any Multi-Drug Resistant Organisms: None Reported Past Surgical History: Appendectomy, Cholecystectomy Additional Past Surgical History / Comment(s): cataracts Past Anesthesia/Blood Transfusion Reactions: No Reported Reaction Smoking Status: Never smoker - Past Family History Father Additional Family Medical History / Comment(s): from old age Mother Additional Family Medical History / Comment(s): from old ae Medications and Allergies Home Medications Medication Instructions Recorded Confirmed Type Aspirin 81 mg PO DAILY 10/02/13 09/18/15 History Atorvastatin Calcium [Lipitor] 20 mg PO HS 10/02/13 09/18/15 History Potassium Chloride [Klor-Con 10] 10 meq PO DAILY 10/02/13 09/18/15 History Venlafaxine HCl ER [Effexor XR] 150 mg PO DAILY 10/02/13 09/18/15 History metFORMIN HCL [Glucophage] 500 mg PO BID 10/02/13 09/18/15 History Celecoxib [CeleBREX] 200 mg PO DAILY 01/25/14 09/18/15 History Furosemide [Lasix] 20 mg PO HS 07/13/15 09/18/15 History Furosemide [Lasix] 40 mg PO QAM 07/13/15 09/18/15 History Albuterol Sulfate [Proair 1 puff PO RT-Q6H PRN 09/18/15 09/18/15 History Respiclick] Carvedilol [Coreg] 6.25 mg PO BID 09/18/15 09/18/15 History Aepwhxubbjihkt-AO-Pystjppfmn 1 tab PO DAILY 09/18/15 09/18/15 History [Folbic] Latanoprost [Xalatan 0.005%] 1 drop BOTH EYES HS 09/18/15 09/18/15 History Loperamide [Imodium] 2 mg PO QID PRN 09/18/15 09/18/15 History SILVER sulfADIAZINE CREAM 1 applic TOPICAL DAILY 09/18/15 09/18/15 History [Silvadene Cream] Cefuroxime [Ceftin] 250 mg PO BID #14 tablet 09/21/15 Rx Famotidine [Pepcid] 20 mg PO DAILY tab 09/21/15 Rx Nystatin 100,000 Unit/gm Powd 1 applic TOPICAL TID 10 Days gm 09/05/17 Rx [Mycostatin Powder] Albuterol Nebulized [Ventolin 2.5 mg INHALATION RT-TID 10/20/17 10/20/17 History Nebulized] Albuterol Sulfate [Proair 2 puff INHALATION RT-Q6H PRN 10/20/17 10/20/17 History Respiclick] Carvedilol [Coreg] 6.25 mg PO BID 10/20/17 10/20/17 History Cholecalciferol [Vitamin D3] 1,000 unit PO DAILY 10/20/17 10/20/17 History Vqamxkfwkgohyp-KD-Wfytgdntpb 1 tab PO DAILY 10/20/17 10/20/17 History [Folbic] Furosemide [Lasix] 20 mg PO HS 10/20/17 10/20/17 History Furosemide [Lasix] 40 mg PO QAM 10/20/17 10/20/17 History Montelukast [Singulair] 10 mg PO HS 10/20/17 10/20/17 History Potassium Chloride ER [K-Dur 10] 10 meq PO DAILY 10/20/17 10/20/17 History metFORMIN HCL [Glucophage Xr] 500 mg PO BID 10/20/17 10/20/17 History Allergies Allergy/AdvReac Type Severity Reaction Status Date / Time erythromycin base AdvReac Diarrhea Verified 10/20/17 13:20 Penicillins AdvReac Diarrhea Verified 09/05/17 09:33 Physical Exam Vitals: Vital Signs Temp Pulse Pulse Resp BP BP Pulse Ox 10/21/17 08:00 99.9 F H 89 18 126/68 93 L 10/21/17 04:00 99.0 F 102 H 16 147/99 93 L 10/21/17 00:00 114 H 20 10/20/17 23:11 98.7 F 114 H 20 148/86 94 L 10/20/17 20:00 98.7 F 85 20 151/67 95 10/20/17 17:17 93 22 10/20/17 17:06 98.2 F 93 20 139/69 100 10/20/17 16:13 97.2 F L 87 16 139/61 99 10/20/17 14:36 98.9 F 103 H 18 152/96 98 10/20/17 12:29 101.3 F H 115 H 18 175/74 96 Intake and Output 10/20/17 10/21/17 10/21/17 22:59 06:59 14:59 Intake Total 180 10 Output Total 600 Balance 180 -590 Intake: IV 10 Invasive Line 2 10 Oral 180 Output: Urine 600 Other: # Voids 3 Weight 87.8 kg Constitutional: Well-developed in no acute respiratory distress. Neck HEENT: Supple pupils are symmetric and reactive to light no carotid bruits or thyroid enlargement. Chest wall: Will expansion bilaterally with no chest wall deformity. Lungs: Decreased breath sound, no crackles or rhonchi no wheezes. Cardiovascular: PMI is in the left fifth costal space, anterior axillary line, irregular rhythm and rate S1, S2, positive S3, positive PVCs. Abdomen: distended, slight splenomegaly with slight a situs soft positive bowel sound no rebound or rigidity. Extremities: No edema, decreased pulses dorsalis pedis and posterior tibial bilaterally. 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 Neuro: Alert, slightly confused, moving all his 4 extremity has generalized weakness no focal deficit. Results CBC & Chem 7: 10/21/17 06:00 10/21/17 06:00 Labs: Abnormal Lab Results - Last 24 Hours (Table) 10/20/17 10/20/17 10/20/17 Range/Units 12:52 12:52 12:52 WBC 12.3 H (3.8-10.6) k/uL Neutrophils # 10.3 H (1.3-7.7) k/uL Potassium (3.5-5.1) mmol/L Chloride 109 H (98-107) mmol/L BUN 28 H (7-17) mg/dL Glucose 177 H (74-99) mg/dL POC Glucose (mg/dL) (75-99) mg/dL AST 40 H (14-36) U/L Troponin I 0.047 H* (0.000-0.034) ng/mL Total Protein 6.0 L (6.3-8.2) g/dL Albumin 3.1 L (3.5-5.0) g/dL Urine Appearance (Clear) Urine Protein (Negative) Urine Ketones (Negative) Urine Blood (Negative) Urine Nitrite (Negative) Ur Leukocyte Esterase (Negative) Urine RBC (0-5) /hpf Urine WBC (0-5) /hpf Urine WBC Clumps (None) /hpf Urine Bacteria (None) /hpf Hyaline Casts (0-2) /lpf Urine Mucus (None) /hpf 10/20/17 10/20/17 10/20/17 Range/Units 13:34 16:38 18:42 WBC (3.8-10.6) k/uL Neutrophils # (1.3-7.7) k/uL Potassium (3.5-5.1) mmol/L Chloride (98-107) mmol/L BUN (7-17) mg/dL Glucose (74-99) mg/dL POC Glucose (mg/dL) 118 H (75-99) mg/dL AST (14-36) U/L Troponin I 0.035 H* (0.000-0.034) ng/mL Total Protein (6.3-8.2) g/dL Albumin (3.5-5.0) g/dL Urine Appearance Turbid H (Clear) Urine Protein 2+ H (Negative) Urine Ketones 1+ H (Negative) Urine Blood Large H (Negative) Urine Nitrite Positive H (Negative) Ur Leukocyte Esterase Large H (Negative) Urine RBC 47 H (0-5) /hpf Urine WBC >182 H (0-5) /hpf Urine WBC Clumps Many H (None) /hpf Urine Bacteria Many H (None) /hpf Hyaline Casts 33 H (0-2) /lpf Urine Mucus Many H (None) /hpf 10/20/17 10/21/17 10/21/17 Range/Units 21:16 06:00 06:00 WBC 13.1 H (3.8-10.6) k/uL Neutrophils # 10.0 H (1.3-7.7) k/uL Potassium 3.3 L (3.5-5.1) mmol/L Chloride (98-107) mmol/L BUN 25 H (7-17) mg/dL Glucose 129 H (74-99) mg/dL POC Glucose (mg/dL) 110 H (75-99) mg/dL AST (14-36) U/L Troponin I (0.000-0.034) ng/mL Total Protein 5.5 L (6.3-8.2) g/dL Albumin 2.8 L (3.5-5.0) g/dL Urine Appearance (Clear) Urine Protein (Negative) Urine Ketones (Negative) Urine Blood (Negative) Urine Nitrite (Negative) Ur Leukocyte Esterase (Negative) Urine RBC (0-5) /hpf Urine WBC (0-5) /hpf Urine WBC Clumps (None) /hpf Urine Bacteria (None) /hpf Hyaline Casts (0-2) /lpf Urine Mucus (None) /hpf 10/21/17 Range/Units 06:17 WBC (3.8-10.6) k/uL Neutrophils # (1.3-7.7) k/uL Potassium (3.5-5.1) mmol/L Chloride (98-107) mmol/L BUN (7-17) mg/dL Glucose (74-99) mg/dL POC Glucose (mg/dL) 123 H (75-99) mg/dL AST (14-36) U/L Troponin I (0.000-0.034) ng/mL Total Protein (6.3-8.2) g/dL Albumin (3.5-5.0) g/dL Urine Appearance (Clear) Urine Protein (Negative) Urine Ketones (Negative) Urine Blood (Negative) Urine Nitrite (Negative) Ur Leukocyte Esterase (Negative) Urine RBC (0-5) /hpf Urine WBC (0-5) /hpf Urine WBC Clumps (None) /hpf Urine Bacteria (None) /hpf Hyaline Casts (0-2) /lpf Urine Mucus (None) /hpf Microbiology - Last 24 Hours (Table) 10/20/17 13:34 Urine Culture - Preliminary Urine,Catheterized Thrombosis Risk Factor Assmnt - Choose All That Apply Any of the Below Risk Factors Present?: Yes Each Factor Represents 1 point: Obesity (BMI >25), Swollen legs (current) Other Risk Factors: Yes Each Risk Factor Represents 2 Points: Age 61-74 years Other congenital or acquired thrombophilia - If yes, enter type in comment: No Thrombosis Risk Factor Assessment Total Risk Factor Score: 4 Thrombosis Risk Factor Assessment Level: Moderate Risk Assessment and Plan Plan: 1 sepsis with UTI: Most likely caused by the kidney stone and the hydronephrosis , patient was started on Rocephin 1 g daily continue medication will consult nephrology patient might require intervention to remove the stone. 2 large ureteral stone: Patient will require some intervention to extract the stone. 3 fall: No major injury no syncopal episode will watch patient carefully, increase activity with help. 4 diabetes: Has been on metformin ex RR we will hold off medication and prepare for any testing or dye test in the meanwhile continue Accu-Chek with sliding scales if needed will have patient on Januvia. 5 COPD: Has been on Ventolin along with Singulair and pro-air continue medication. 6 diastolic congestive heart failure mostly chronic has been on furosemide and Coreg continue medication. 7 electrolyte imbalance: Mostly hypokalemia, continue replacement. 8 DVT prophylaxis: Patient will be on heparin 5000 units subcutaneous twice a day. 9 GI prophylaxis: Patient will be on Pepcid 20 mg daily. CODE STATUS: Full code. Admit patient to inpatient status for more than 2 nights.
--- NOTE | 2017-10-21 17:08 | FL ---
EXAMINATION TYPE: FL urography retrograde DATE OF EXAM: 10/21/2017 COMPARISON: NONE HISTORY: 82 year-old female left ureteral stent placement TECHNIQUE: Fluoroscopy. FINDINGS: Fluoroscopic guidance was provided during procedure performed by Dr. Cole. A total of 2 minutes 32 seconds of fluoroscopic time was utilized during the procedure and 3 spot images was acqui red. IMPRESSION: Procedural fluoroscopy during left ureteral stent placement as above.
[2017-10-21 17:15] LABS: Glucose,Whole Blood 98 mg/dL (75-99)
[2017-10-21] MEDS: cefTRIAXone IN SWFI 1,000 MG/10 ML SYRINGE IVP SCH (17:35)
[2017-10-21] MEDS: MONTELUKAST 10 MG TAB PO SCH (21:08)
[2017-10-21] MEDS: FUROSEMIDE 20 MG TAB PO SCH (21:08)
[2017-10-21 21:09] LABS: Glucose,Whole Blood 112 mg/dL (75-99)
[2017-10-22 06:58] LABS: Glucose,Whole Blood 100 mg/dL (75-99)
[2017-10-22] MEDS: ALBUTEROL NEBULIZED 2.5 MG/3 ML INHALATION SCH ×3 (07:49→20:04)
[2017-10-22] MEDS: INSULIN ASPART 100 UNIT/ML 1 ML 10 ML VIAL SQ SCH ×4 (08:36→21:36)
[2017-10-22] MEDS: POTASSIUM CHLORIDE ER 10 MEQ TAB.ER.PRT PO SCH (08:40)
[2017-10-22] MEDS: FUROSEMIDE 40 MG TAB PO SCH (08:40)
[2017-10-22] MEDS: CARVEDILOL 6.25 MG TAB PO SCH ×2 (08:40→17:01)
[2017-10-22] MEDS: CYANOCOBALAMIN-FA-PYRIDOXINE 1 EACH TAB PO SCH (08:40)
[2017-10-22] MEDS: CHOLECALCIFEROL 1,000 UNIT TAB PO SCH (08:40)
--- NOTE | 2017-10-22 08:41 | P.PN ---
Subjective Progress Note Date: 10/22/17 The patient underwent placement of a double-J catheter on the left side yesterday for an obstructing ureteral stone, pyonephrosis, urinary tract infection with sepsis. She feels good this morning. Her heart rate is down. She is growing a gram-negative darnell. The urine culture. Her vital signs are stable. Her urologic standpoint she can go home. She should be on antibiotics until I remove the stone and stent in about 2 weeks. I need to see her in the office in one week. Objective - Vital Signs Vital signs: Vital Signs Temp 98.5 F 10/22/17 06:50 Pulse 80 10/22/17 08:01 Resp 16 10/22/17 04:00 BP 105/53 10/22/17 06:50 Pulse Ox 92 L 10/22/17 07:50 Intake & Output 10/21/17 10/22/17 10/22/17 18:59 06:59 18:59 Intake Total 250 990 Output Total 401 Balance -151 990 Weight 87.8 kg Intake: IV 250 Oral 990 Output: Urine 400 Estimated Blood Loss 1 Other: # Voids 1 2 # Bowel Movements 1 - Labs CBC & Chem 7: 10/21/17 06:00 10/21/17 19:07 Labs: Abnormal Lab Results - Last 24 Hours (Table) 10/21/17 10/21/17 10/21/17 Range/Units 00:18 11:38 21:07 POC Glucose (mg/dL) 110 H 112 H (75-99) mg/dL Hemoglobin A1c 6.1 H (4.0-6.0) % 10/22/17 Range/Units 06:42 POC Glucose (mg/dL) 100 H (75-99) mg/dL Hemoglobin A1c (4.0-6.0) % Microbiology - Last 24 Hours (Table) 10/20/17 13:34 Urine Culture - Preliminary Urine,Catheterized Gram Neg Bacilli 10/20/17 12:52 Blood Culture - Preliminary Blood No Growth after 24 hours
[2017-10-22 11:39] LABS: Glucose,Whole Blood 115 mg/dL (75-99)
--- NOTE | 2017-10-22 12:46 | P.PN ---
Subjective 82-year-old female one of Dr. Reis's patient who live in [facility] with past medical history of diabetes hypertension migraine mild congestive heart failure and history of mild COPD who apparently had fall at [facility] without syncopal episode according to her she tripped was not able to get out of the floor she called for help found to have fever with severe tiredness fatigue ended up coming to the emergency department at [facility] where found to have elevated temperature around 101 with elevated white blood cell urine was positive and patient testing showed left sided large ureteral stone with ureteral nephrosis. Patient was started on IV antibiotics with Rocephin 1 g daily we'll consult urology and admitted to the hospital shortly after with above problem. 10/22: Patient evaluated today. The patient underwent placement of a double J catheter on the left side yesterday for an obstructing stone with Dr. Courtney. Plan from urology is to have the patient go for a formal ureteroscopy and stone extraction in about 2 weeks as outpatient. She is cleared from urology, patient reports she still feels very weak. Urine culture shows gram-negative bacilli, blood cultures show no growth today, vital signs are stable. Will continue Ceftriaxone for one more day and plan for ECF for sub-acute rehab tomorrow. Objective - Vital Signs Vital signs: Vital Signs Temp 98.5 F 10/22/17 06:50 Pulse 80 10/22/17 08:01 Resp 16 10/22/17 04:00 BP 105/53 10/22/17 06:50 Pulse Ox 92 L 10/22/17 07:50 Intake & Output 10/21/17 10/22/17 10/22/17 18:59 06:59 18:59 Intake Total 250 990 Output Total 401 Balance -151 990 Weight 87.8 kg 82.6 kg Intake: IV 250 Oral 990 Output: Urine 400 Estimated Blood Loss 1 Other: # Voids 1 2 # Bowel Movements 1 - Constitutional General appearance: Present: cooperative - EENT Eyes: Present: PERRLA ENT: Present: hearing grossly normal - Neck Neck: Present: normal ROM. Absent: lymphadenopathy, thyromegaly - Respiratory Respiratory: bilateral: CTA, negative: rales, rhonchi, wheezing - Cardiovascular Rhythm: regular Heart sounds: normal: S1, S2 - Gastrointestinal General gastrointestinal: Present: normal bowel sounds, soft. Absent: distended , organomegaly, tenderness - Neurologic Neurologic: Present: CNII-XII intact. Absent: focal deficits - Musculoskeletal Musculoskeletal: Present: generalized weakness, strength equal bilaterally - Psychiatric Psychiatric: Present: A&O x's 3 - Labs CBC & Chem 7: 10/21/17 06:00 10/21/17 19:07 Labs: Abnormal Lab Results - Last 24 Hours (Table) 10/21/17 10/21/17 10/22/17 Range/Units 00:18 21:07 06:42 POC Glucose (mg/dL) 112 H 100 H (75-99) mg/dL Hemoglobin A1c 6.1 H (4.0-6.0) % 10/22/17 Range/Units 11:37 POC Glucose (mg/dL) 115 H (75-99) mg/dL Hemoglobin A1c (4.0-6.0) % Microbiology - Last 24 Hours (Table) 10/20/17 13:34 Urine Culture - Preliminary Urine,Catheterized Gram Neg Bacilli 10/20/17 12:52 Blood Culture - Preliminary Blood No Growth after 24 hours Assessment and Plan Plan: 1 sepsis with UTI: Most likely caused by the kidney stone and the hydronephrosis , patient was started on Rocephin 1 g daily continue medication, patient underwent double-J catheter on the left side yesterday with Dr. Courtney, will need to follow-up as outpatient in 2 weeks to undergo ureteroscopy and stone extraction. 2 large ureteral stone: Patient will require some intervention to extract the stone, will follow up with urology as outpatient in about 2 weeks. 3 fall: No major injury no syncopal episode will watch patient carefully, increase activity with help, will benefit from subacute rehab 4 diabetes: Has been on metformin ex RR we will hold off medication and prepare for any testing or dye test in the meanwhile continue Accu-Chek with sliding scales if needed will have patient on Januvia. 5 COPD: Has been on Ventolin along with Singulair and pro-air continue medication. 6 diastolic congestive heart failure mostly chronic has been on furosemide and Coreg continue medication. 7 electrolyte imbalance: Mostly hypokalemia, continue replacement. 8 DVT prophylaxis: Patient will be on heparin 5000 units subcutaneous twice a day. 9 GI prophylaxis: Patient will be on Pepcid 20 mg daily. CODE STATUS: Full code. The above impression and plan of care have been discussed and directed by signing physician. Aishwarya Fan nurse practitioner acting as scribe for signing physician.
[2017-10-22 16:59] LABS: Glucose,Whole Blood 125 mg/dL (75-99)
[2017-10-22] MEDS: cefTRIAXone IN SWFI 1,000 MG/10 ML SYRINGE IVP SCH (17:01)
[2017-10-22 20:06] VITALS: RESP 16
[2017-10-22] MEDS: MONTELUKAST 10 MG TAB PO SCH (20:52)
[2017-10-22] MEDS: FUROSEMIDE 20 MG TAB PO SCH (20:52)
[2017-10-22 21:11] LABS: Glucose,Whole Blood 135 mg/dL (75-99)
[2017-10-23 07:06] LABS: Glucose,Whole Blood 112 mg/dL (75-99)
[2017-10-23 08:22] VITALS: BP 135/71; PULSE 74; TEMP 98
[2017-10-23] MEDS: CARVEDILOL 6.25 MG TAB PO SCH (08:43)
[2017-10-23] MEDS: INSULIN ASPART 100 UNIT/ML 1 ML 10 ML VIAL SQ SCH ×2 (08:43→12:45)
[2017-10-23] MEDS: CYANOCOBALAMIN-FA-PYRIDOXINE 1 EACH TAB PO SCH (08:45)
[2017-10-23] MEDS: POTASSIUM CHLORIDE ER 10 MEQ TAB.ER.PRT PO SCH (08:45)
[2017-10-23] MEDS: CHOLECALCIFEROL 1,000 UNIT TAB PO SCH (08:45)
[2017-10-23] MEDS: FUROSEMIDE 40 MG TAB PO SCH (08:45)
[2017-10-23] MEDS: ALBUTEROL NEBULIZED 2.5 MG/3 ML INHALATION SCH ×2 (09:37→13:41)
[2017-10-23 11:01] LABS: Glucose,Whole Blood 156 mg/dL (75-99)
[2017-10-23 11:24] VITALS: BMI 34.4
--- NOTE | 2017-10-23 12:10 | P.DS ---
Providers Date of admission: 10/20/17 15:06 Attending physician: Mike Cole Consults: 10/20/17 15:06 Consult Physician Stat Consulting Provider: Neelam Campbell Consult Reason/Comments: CHF, elevated troponin Do you want consulting provider notified?: Yes Consult Physician Stat Consulting Provider: Wilbert Goldstein Consult Reason/Comments: septic renal stone Do you want consulting provider notified?: Yes Primary care physician: Dariel Reis [facility] Course: 82-year-old female one of Dr. Reis's patient who live in [facility] with past medical history of diabetes hypertension migraine mild congestive heart failure and history of mild COPD who apparently had fall at [facility] without syncopal episode according to her she tripped was not able to get out of the floor she called for help found to have fever with severe tiredness fatigue ended up coming to the emergency department at [facility] where found to have elevated temperature around 101 with elevated white blood cell urine was positive and patient testing showed left sided large ureteral stone with ureteral nephrosis. Patient was started on IV antibiotics with Rocephin 1 g daily we'll consult urology and admitted to the hospital shortly after with above problem. 10/22: Patient evaluated today. The patient underwent placement of a double J catheter on the left side yesterday for an obstructing stone with Dr. Courtney. Plan from urology is to have the patient go for a formal ureteroscopy and stone extraction in about 2 weeks as outpatient. She is cleared from urology, patient reports she still feels very weak. Urine culture shows gram-negative bacilli, blood cultures show no growth today, vital signs are stable. Will continue Ceftriaxone for one more day and plan for ECF for sub-acute rehab tomorrow. 10/23: Patient is doing much better, was cleared by urology yesterday, will be continue on antibiotic for the next few days and will be seen urology as an outpatient for lithotripsy and stent will be remain on for now. Patient is still very weak and debilitated looking for ECF for subacute most likely [place] today. 1 sepsis with UTI: Most likely caused by the kidney stone and the hydronephrosis , patient was started on Rocephin 1 g daily continue medication, patient underwent double-J catheter on the left side yesterday with Dr. Courtney, will need to follow-up as outpatient in 2 weeks to undergo ureteroscopy and stone extraction. 2 large ureteral stone: Patient will require some intervention to extract the stone, will follow up with urology as outpatient in about 2 weeks. 3 fall: No major injury no syncopal episode will watch patient carefully, increase activity with help, will benefit from subacute rehab 4 diabetes: Has been on metformin ex RR we will hold off medication and prepare for any testing or dye test in the meanwhile continue Accu-Chek with sliding scales if needed will have patient on Januvia. 5 COPD: Has been on Ventolin along with Singulair and pro-air continue medication. 6 diastolic congestive heart failure mostly chronic has been on furosemide and Coreg continue medication. 7 electrolyte imbalance: Mostly hypokalemia, continue replacement. 8 DVT prophylaxis: Patient will be on heparin 5000 units subcutaneous twice a day. 9 GI prophylaxis: Patient will be on Pepcid 20 mg daily. She is stable will be discharged to [facility] today to follow with urology in 2 weeks for Patient Condition at Discharge: Fair Plan - Discharge Summary Discharge Rx Participant: No New Discharge Prescriptions: New Acetaminophen Tab [Tylenol] 650 mg PO Q6HR PRN tab PRN Reason: Mild Pain Or Fever > 100.5 Insulin Aspart [NovoLOG (formulary)] 0 unit SQ ACHS vial Continue Venlafaxine HCl ER [Effexor XR] 150 mg PO DAILY Atorvastatin Calcium [Lipitor] 20 mg PO HS Latanoprost [Xalatan 0.005%] 1 drop BOTH EYES HS metFORMIN HCL [Glucophage Xr] 500 mg PO BID Montelukast [Singulair] 10 mg PO HS Albuterol Nebulized [Ventolin Nebulized] 2.5 mg INHALATION RT-TID Uxemalukjnfqlo-SQ-Jzotmynbbg [Folbic] 1 tab PO DAILY Cholecalciferol [Vitamin D3] 1,000 unit PO DAILY Albuterol Sulfate [Proair Respiclick] 2 puff INHALATION RT-Q6H PRN PRN Reason: Shortness Of Breath Potassium Chloride ER [K-Dur 10] 10 meq PO DAILY Furosemide [Lasix] 20 mg PO HS Furosemide [Lasix] 40 mg PO QAM Carvedilol [Coreg] 6.25 mg PO BID Cefuroxime [Ceftin] 250 mg PO BID 7 Days #14 tablet Discharge Medication List Atorvastatin Calcium [Lipitor] 20 mg PO HS 10/02/13 [History] Venlafaxine HCl ER [Effexor XR] 150 mg PO DAILY 10/02/13 [History] Latanoprost [Xalatan 0.005%] 1 drop BOTH EYES HS 09/18/15 [History] Albuterol Nebulized [Ventolin Nebulized] 2.5 mg INHALATION RT-TID 10/20/17 [ History] Albuterol Sulfate [Proair Respiclick] 2 puff INHALATION RT-Q6H PRN 10/20/17 [ History] Carvedilol [Coreg] 6.25 mg PO BID 10/20/17 [History] Cholecalciferol [Vitamin D3] 1,000 unit PO DAILY 10/20/17 [History] Xnfcbgvfduznsl-HS-Gqzndrttjq [Folbic] 1 tab PO DAILY 10/20/17 [History] Furosemide [Lasix] 20 mg PO HS 10/20/17 [History] Furosemide [Lasix] 40 mg PO QAM 10/20/17 [History] Montelukast [Singulair] 10 mg PO HS 10/20/17 [History] Potassium Chloride ER [K-Dur 10] 10 meq PO DAILY 10/20/17 [History] metFORMIN HCL [Glucophage Xr] 500 mg PO BID 10/20/17 [History] Acetaminophen Tab [Tylenol] 650 mg PO Q6HR PRN tab 10/23/17 [Rx] Cefuroxime [Ceftin] 250 mg PO BID 7 Days #14 tablet 10/23/17 [Rx] Insulin Aspart [NovoLOG (formulary)] 0 unit SQ ACHS vial 10/23/17 [Rx] Follow up Appointment(s)/Referral(s): Mike Cole MD [Medical Doctor] - 1 Week (pt will be seen at [facility]) Discharge Disposition: TRANSFER TO SNF/[facility]
== END 2017-10-23 13:46 | DRG 872 ==
LOC: EC 12:28 → 6SEL 15:06 → MERGE 15:06 → 6SEL 15:50 → 3SUR 10-21 12:04
PROVIDERS: ADMIT Internal Medicine Geriatric Medicine; ATTEND Internal Medicine Geriatric Medicine
PROC: 0T778DZ Dilation of Left Ureter with Intraluminal Device, Via Natural or Artificial Opening Endoscopic (ICD-10-PCS; principal; 2017-10-20)
DX: A41.9 Sepsis, unspecified organism (principal); N13.6 Pyonephrosis; I50.32 Chronic diastolic (congestive) heart failure; E11.9 Type 2 diabetes mellitus without complications; E87.6 Hypokalemia; I11.0 Hypertensive heart disease with heart failure; W19.XXXA Unspecified fall, initial encounter; H40.9 Unspecified glaucoma; J44.9 Chronic obstructive pulmonary disease, unspecified; Z79.82 Long term (current) use of aspirin; Z79.84 Long term (current) use of oral hypoglycemic drugs; Z79.899 Other long term (current) drug therapy; Z90.49 Acquired absence of other specified parts of digestive tract
CPT/HCPCS: 36415; 70450; 71046; 72125; 74177; 74420; 80053; 81001; 83036; 83605; 83690; 83735; 83880; 84132; 84484; 85025; 87040; 87077; 87086; 87186; 93005; 93306; 94640; 94760; 96361; 96374; 99285

== ENCOUNTER 2021-02-12 01:03 | Emergency (ER) | payer MEDICARE, OTHER ==
[2021-02-12 01:28] VITALS: TEMP 97.5
--- NOTE | 2021-02-12 03:03 | CT ---
EXAMINATION TYPE: CT brain anjelica carr con DATE OF EXAM: 02/12/2021 COMPARISON: 10/20/2017 HISTORY: Fall, pain CT DLP: 1298.7 mGycm Automated exposure control for dose reduction was used. TECHNIQUE: CT scan of the head and cervical spine are performed without contrast. FINDINGS: Intracranial atherosclerotic changes noted. Orbits symmetric. There is generalized degene rative change nonspecific low-attenuation white matter most typical of remote white matter ischemia. No acute hemorrhage or mass effect. Changes of chronic sinusitis noted. There is loss the normal cervical lordosis. There is a 2 mm anterior listhesis of C4 on C5 and there is severe degenerative disc disease at levels C4-5, C5-6, C6 there is 7 and C7-T1. Multilevel facet a rthropathy and foraminal encroachment. Assessment spinal canal limited due to resolution artifact. Multilevel canal stenosis suspected. Bailey ges of sinusitis seen. IMPRESSION: 1. There is no acute fracture or dislocation evident in the cervical spine. Multilevel severe degener ative disc disease with loss of normal cervical lordosis development of cervical kyphosis. Anterolist hesis of 2 mm at C4 and C5. This was also reported on the prior exam. Multilevel foraminal encroachme nt and canal stenosis suspected recommend follow-up MRI. 2. No acute intracranial hemorrhage, mass effect, or midline shift is seen. Degenerative and nonspeci fic white matter changes most typical remote white matter ischemia.
[2021-02-12 03:28] LABS: Basophils # (A) 0.1 k/uL (0-0.2); Basophils % (A) 1 %; Calcium 10.1 mg/dL (8.4-10.2); Eosinophils # (A) 0.3 k/uL (0-0.7); Eosinophils % (A) 3 %; HCT 36.1 % (34.0-46.0); HGB 11.7 gm/dL (11.4-16.0); Lymphocytes # (A) 2.2 k/uL (1.0-4.8); Lymphocytes % (A) 17 %; MCH 30.4 pg (25.0-35.0); MCHC 32.6 g/dL (31.0-37.0); MCV 93.2 fL (80.0-100.0); Mean Platelet Volume 9.9; Monocytes # (A) 0.6 k/uL (0-1.0); Monocytes % (A) 5 %; Neutrophils # (A) 9.3 k/uL (1.3-7.7); Neutrophils % (A) 73 %; Platelet Count 233 k/uL (150-450); Potassium 4.4 mmol/L (3.5-5.1); RBC 3.87 m/uL (3.80-5.40); RDW 14.5 % (11.5-15.5); WBC 12.8 k/uL (3.8-10.6)
[2021-02-12] MEDS ORDERED: ACETAMINOPHEN TAB 325 MG TAB PO STA (04:22)
--- NOTE | 2021-02-12 04:28 | CT ---
EXAMINATION TYPE: CT abdomen pelvis wo con DATE OF EXAM: 02/12/2021 HISTORY: epigastric pain after fall injury. CT DLP: 887.1 mGycm. Automated Exposure Control for Dose Reduction was Utilized. TECHNIQUE: CT scan of the abdomen and pelvis is performed without oral or IV contrast. COMPARISON: CT abdomen and pelvis October 20, 2017 FINDINGS: Within the limitations of a non-contrast study, the following observations are made. LUNG BASES: Redemonstration of cardiomegaly with coronary artery calcification and enlarged pulmonary arteries consistent with underlying pulmonary artery hypertension. Calcification at level of mitral valve. LIVER/GB: Cholecystectomy clips are redemonstrated. Some lobulated contour to underlying liver sugges ts underlying cirrhosis. No significant change from prior. PANCREAS: Persistent rim calcified lesion along the anterior aspect of the distal pancreatic body jennifer suring approximately 5.4 x 3.8 cm axial image 69 and suspected smaller rim calcified lesion pancreati c tail at 1.8 cm axial image 59. No significant change from prior. Suspect splenic artery aneurysms, external rim calcified pancreatic cystic lesions in the differential but felt less likely. SPLEEN: No significant abnormality is seen. ADRENALS: No significant abnormality is seen. KIDNEYS: No significant abnormality is seen. BOWEL: No suspicious small or large bowel dilatation. Redundant sigmoid colon GENITAL ORGANS: Anteverted uterus projects to right of midline. Scattered pelvic phleboliths. LYMPH NODES: No new greater than 1cm abdominal or pelvic lymph nodes are appreciated. Mild haziness i n the mid abdominal mesenteric fat axial image 86 is redemonstrated, nonspecific finding. OSSEOUS STRUCTURES: Moderate axial joint space loss both hips. There is scoliotic curvature with mult ilevel spurring and disc space narrowing throughout the thoracolumbar spine. Multilevel facet arthrop athy in the lumbar spine. OTHER: [place] fat containing umbilical hernia redemonstrated. Surgical changes from hernia repair surgery seen superior to this. Moderate to severe calcified plaque of the infrarenal abdominal aorta extends into branch vessels. IMPRESSION: Mild mesenteric fat stranding could reflect a small degree of internal hemorrhage but was present on prior study favoring edema. No new acute post traumatic finding identified on noncontrast CT.
--- NOTE | 2021-02-12 04:57 | ED ---
Fall HPI - General Chief Complaint: Fall Stated Complaint: Fall Time Seen by Provider: 02/12/21 01:20 Source: EMS Mode of arrival: EMS - History of Present Illness MD Complaint: fall Onset/Timin -: hour(s) Fall From: out of bed When Fall Occurred: 1 hour [employer] Fall Witnessed: no Place Fall Occurred: home Loss of Consciousness: none Prolonged Down Time?: no Symptoms Prior to Fall: none Location: head Severity: moderate - Related Data Home Medications Medication Instructions Recorded Confirmed Atorvastatin Calcium [Lipitor] 20 mg PO HS 10/02/13 10/23/17 Venlafaxine HCl ER [Effexor XR] 150 mg PO DAILY 10/02/13 10/23/17 Latanoprost [Xalatan 0.005%] 1 drop BOTH EYES HS 09/18/15 10/23/17 Albuterol Nebulized [Ventolin 2.5 mg INHALATION RT-TID 10/20/17 10/20/17 Nebulized] Albuterol Sulfate [Proair 2 puff INHALATION RT-Q6H PRN 10/20/17 10/20/17 Respiclick] Cholecalciferol [Vitamin D3 (25 1,000 unit PO DAILY 10/20/17 10/20/17 Mcg = 1000 Iu)] Omsslffezsurom-MQ-Yiacsohdmg 1 tab PO DAILY 10/20/17 10/20/17 [Folbic] Furosemide [Lasix] 20 mg PO HS 10/20/17 10/20/17 Furosemide [Lasix] 40 mg PO QAM 10/20/17 10/20/17 Montelukast [Singulair] 10 mg PO HS 10/20/17 10/20/17 Potassium Chloride ER [K-Dur 10] 10 meq PO DAILY 10/20/17 10/20/17 carvediloL [Coreg] 6.25 mg PO BID 10/20/17 10/20/17 metFORMIN HCL [Glucophage XR] 500 mg PO BID 10/20/17 10/20/17 Previous Rx's Medication Instructions Recorded Acetaminophen Tab [Tylenol] 650 mg PO Q6HR PRN tab 10/23/17 Cefuroxime [Ceftin] 250 mg PO BID 7 Days #14 tablet 10/23/17 INSULIN ASPART (NovoLOG) [NovoLOG 0 unit SQ ACHS vial 10/23/17 (formulary)] Allergies Allergy/AdvReac Type Severity Reaction Status Date / Time erythromycin base AdvReac Diarrhea Verified 02/12/21 01:27 Penicillins AdvReac Diarrhea Verified 02/12/21 01:27 Review of Systems ROS Statement: Those systems with pertinent positive or pertinent negative responses have been documented in the HPI. ROS Other: All systems not noted in ROS Statement are negative. Constitutional: Denies: fever, weakness Eyes: Denies: eye pain, vision change Respiratory: Denies: cough, dyspnea Cardiovascular: Denies: chest pain, palpitations, edema Gastrointestinal: Reports: abdominal pain. Denies: vomiting, diarrhea Genitourinary: Denies: dysuria, hematuria Musculoskeletal: Denies: back pain Skin: Denies: rash Neurological: Reports: headache. Denies: weakness, numbness Past Medical History Past Medical History: Heart Failure, Dementia, Diabetes Mellitus, Hyperlipidemia, Hypertension, Osteoarthritis (OA), Seizure Disorder Additional Past Medical History / Comment(s): past cataract(sx), glaucoma lara eyes, past migraines History of Any Multi-Drug Resistant Organisms: None Reported Past Surgical History: Appendectomy, Cholecystectomy Additional Past Surgical History / Comment(s): cataracts Past Anesthesia/Blood Transfusion Reactions: No Reported Reaction Past Psychological History: Anxiety, Depression, No Psychological Hx Reported Smoking Status: Former smoker Past Alcohol Use History: None Reported, Occasional - Past Family History Father Family Medical History: Dementia Additional Family Medical History / Comment(s): from old age Mother Family Medical History: No Reported History Additional Family Medical History / Comment(s): from old ae General Exam Limitations: no limitations, altered mental status General appearance: alert, in no apparent distress Head exam: Present: atraumatic, normocephalic Eye exam: Present: normal appearance, PERRL, EOMI. Absent: scleral icterus, conjunctival injection Respiratory exam: Present: normal lung sounds bilaterally. Absent: respiratory distress, wheezes, rales, rhonchi, stridor Cardiovascular Exam: Present: regular rate, normal rhythm, normal heart sounds. Absent: systolic murmur, diastolic murmur, rubs, gallop GI/Abdominal exam: Present: soft, tenderness (There is some mild left-sided tenderness.). Absent: distended, guarding, rebound, rigid, mass Extremities exam: Present: normal inspection, normal capillary refill. Absent: pedal edema, calf tenderness Back exam: Present: normal inspection. Absent: vertebral tenderness Neurological exam: Present: alert Skin exam: Present: warm, dry, intact, normal color. Absent: rash Course Vital Signs 02/12/21 02/12/21 02/12/21 01:14 03:26 05:00 Temperature 97.5 F L Pulse Rate 92 78 69 Respiratory 16 18 18 Rate Blood Pressure 147/56 113/53 118/78 O2 Sat by Pulse 97 97 95 Oximetry Medical Decision Making - Lab Data Result diagrams: 02/12/21 02:57 02/12/21 02:57 Lab Results 02/12/21 02/12/21 Range/Units 02:57 02:57 WBC 12.8 H (3.8-10.6) k/uL RBC 3.87 (3.80-5.40) m/uL Hgb 11.7 (11.4-16.0) gm/dL Hct 36.1 (34.0-46.0) % MCV 93.2 (80.0-100.0) fL MCH 30.4 (25.0-35.0) pg MCHC 32.6 (31.0-37.0) g/dL RDW 14.5 (11.5-15.5) % Plt Count 233 (150-450) k/uL MPV 9.9 Neutrophils % 73 % Lymphocytes % 17 % Monocytes % 5 % Eosinophils % 3 % Basophils % 1 % Neutrophils # 9.3 H (1.3-7.7) k/uL Lymphocytes # 2.2 (1.0-4.8) k/uL Monocytes # 0.6 (0-1.0) k/uL Eosinophils # 0.3 (0-0.7) k/uL Basophils # 0.1 (0-0.2) k/uL Sodium 140 (137-145) mmol/L Potassium 4.4 (3.5-5.1) mmol/L Chloride 103 (98-107) mmol/L Carbon Dioxide 26 (22-30) mmol/L Anion Gap 11 mmol/L BUN 28 H (7-17) mg/dL Creatinine 0.92 (0.52-1.04) mg/dL Est GFR (CKD-EPI)AfAm 66 (>60 ml/min/1.73 sqM) Est GFR (CKD-EPI)NonAf 58 (>60 ml/min/1.73 sqM) Glucose 132 H (74-99) mg/dL Calcium 10.1 (8.4-10.2) mg/dL Disposition Clinical Impression: Fall Disposition: HOME SELF-CARE Condition: Good Instructions (If sedation given, give patient instructions): Fall Prevention for Older Adults (ED) Is patient prescribed a controlled substance at d/c from ED?: No Referrals: Mike Cole MD [Primary Care Provider] - 1-2 days
[2021-02-12 06:15] VITALS: BP 118/78; PULSE 69; RESP 18
== END 2021-02-12 06:15 | disposition home or self-care (01) ==
LOC: EC 01:03
DX: R10.9 Unspecified abdominal pain (principal); E11.9 Type 2 diabetes mellitus without complications; E78.5 Hyperlipidemia, unspecified; M19.90 Unspecified osteoarthritis, unspecified site; I11.0 Hypertensive heart disease with heart failure; I50.9 Heart failure, unspecified; Z88.0 Allergy status to penicillin; Z88.1 Allergy status to other antibiotic agents; Z79.899 Other long term (current) drug therapy; Z79.4 Long term (current) use of insulin; Z87.891 Personal history of nicotine dependence; W06.XXXA Fall from bed, initial encounter
CPT/HCPCS: 36415; 70450; 72125; 74176; 80048; 85025; 99284